=== PATIENT | female | born 1990 | race African-American/Black ===

== ENCOUNTER 2018-05-25 09:54 | Inpatient (IN) | payer OTHER ==
[2018-05-25] MEDS ORDERED: Ondansetron HCl/PF 4 MG/2 ML Vial IVP PRN ×5 (10:04→16:45)
[2018-05-25 10:13] VITALS: BMI 38.7
[2018-05-25] MEDS: Lactated Ringer's 1,000 ML IV SCH ×2 (10:29→11:45)
[2018-05-25] MEDS ORDERED: Bicitra 30 ML UDCUP PO SCH (10:30)
[2018-05-25] MEDS ORDERED: CEFAZOLIN/Water 2 GM/20 ML SYRINGE SLOW IVP SCH (10:30)
[2018-05-25] MEDS ORDERED: ePHEDrine/0.9% NaCl/PF SYRINGE 50 mg/10 ml ONE (10:32)
[2018-05-25] MEDS ORDERED: Ondansetron HCl/PF 4 MG/2 ML Vial ONE (10:32)
[2018-05-25] MEDS ORDERED: PHENYLEPHRINE-NS 100 MCG/ML 10 ML SYRINGE ONE (10:32)
[2018-05-25] MEDS ORDERED: Dexamethasone 20 MG/5 ML VIAL ONE (10:32)
[2018-05-25 10:42] LABS: Hemoglobin 10.4 g/dL (12.0-16.0); Mean Corpuscular HGB CONC 33.1 g/dL (32.0-36.0); Mean Corpuscular Hemoglobin 27.4 pg (27.0-31.0); Mean Corpuscular Volume 82.7 fL (78.0-98.0); Mean Platelet Volume 6.6 fL (7.4-10.4); Platelet Count 280 thou/uL (130-400); RBC Distribution Width 14.3 % (11.5-14.5); Red Blood Cell (RBC) Count 3.79 mill/uL (4.20-5.40); White Blood Cell (WBC) Count 8.3 thou/uL (4.8-10.8)
[2018-05-25 11:16] LABS: Syphilis Antibody Nonreactive (Nonreactive); Syphilis Antibody Index 0.03 S/CO (<1.00 Non-Reactive)
[2018-05-25 11:18] LABS: HBSAg Index 0.21 S/CO (0-0.99); Hep B Surf Ag Non-Reactive S/CO (NonReactive)
[2018-05-25] MEDS ORDERED: Meperidine HCl/PF 25 MG/ML VIAL SLOW IVP PRN (11:55)
[2018-05-25] MEDS ORDERED: Naloxone HCl 0.4 mg/ml Vial IV PRN ×4 (11:55→16:45)
[2018-05-25] MEDS ORDERED: Eucerin (Mineral Oil/Petrolatum,White) 30 gm Jar TOP PRN (11:55)
[2018-05-25] MEDS ORDERED: Promethazine HCl 25 MG/ML VIAL IM PRN ×2 (11:55→16:45)
[2018-05-25] MEDS ORDERED: diphenhydrAMINE 50 MG/ML VIAL IVP PRN (11:55)
[2018-05-25] MEDS ORDERED: Naloxone HCl 0.4 mg/ml Vial IVP PRN ×2 (11:55)
[2018-05-25] MEDS ORDERED: Ketorolac Tromethamine 30 MG/ML VIAL IVP PRN ×2 (11:55→16:45)
[2018-05-25] MEDS ORDERED: HYDROmorphone 2 MG/ML VIAL SLOW IVP PRN (11:55)
[2018-05-25] MEDS ORDERED: Promethazine HCl 25 MG SUPP PR PRN ×2 (11:55→16:45)
[2018-05-25] MEDS ORDERED: Ketorolac Tromethamine 30 MG/ML VIAL IVP SCH (12:00)
[2018-05-25] MEDS ORDERED: Communication Order-Pharmacy FS SCH (12:00)
[2018-05-25] MEDS ORDERED: diphenhydrAMINE 50 MG/ML VIAL ONE (13:36)
[2018-05-25] MEDS ORDERED: Ketorolac Tromethamine 30 MG/ML VIAL ONE (13:50)
[2018-05-25] MEDS ORDERED: Meperidine HCl/PF 25 MG/ML VIAL ONE (14:03)
[2018-05-25] MEDS ORDERED: Morphine 4 MG/ML VIAL ONE (14:16)
[2018-05-25] MEDS ORDERED: diphenhydrAMINE 25 MG CAP PO PRN (15:06)
[2018-05-25] MEDS ORDERED: Bisacodyl 10 MG SUPP PR PRN (15:06)
[2018-05-25] MEDS ORDERED: NS / Oxytocin 40 units/1000ml 1,000 ML IV SCH (15:06)
[2018-05-25] MEDS: Ibuprofen 800 MG TAB PO SCH ×2 (16:18→22:04)
[2018-05-25] MEDS ORDERED: Hydrocerin (Eucerin) Cream 120 gm Jar TOP PRN (16:45)
[2018-05-25] MEDS ORDERED: NO PO,IM,IV OR SC NARCOTICS FOR 12HR EXCEPT BY ANESTHESIA PO SCH (16:45)
[2018-05-25] MEDS: Docusate Calcium (SURFAK) 240 MG CAP PO SCH (21:00)
[2018-05-25] MEDS: Ferrous Sulfate 325 MG TAB PO SCH (21:00)
[2018-05-25] MEDS ORDERED: Meperidine HCl/PF 25 MG/ML VIAL IM PRN (23:59)
[2018-05-26] MEDS: Lactated Ringer's 1,000 ML IV SCH (00:24)
[2018-05-26] MEDS: diphenhydrAMINE 50 MG/ML VIAL IVP PRN ×2 (00:39→08:24)
[2018-05-26 05:49] LABS: Hemoglobin 9.6 g/dL (12.0-16.0); Mean Corpuscular HGB CONC 33.3 g/dL (32.0-36.0); Mean Corpuscular Volume 83.9 fL (78.0-98.0); Platelet Count 260 thou/uL (130-400); RBC Distribution Width 14.2 % (11.5-14.5); Red Blood Cell (RBC) Count 3.44 mill/uL (4.20-5.40); White Blood Cell (WBC) Count 13.2 thou/uL (4.8-10.8)
[2018-05-26] MEDS: Ibuprofen 800 MG TAB PO SCH ×4 (07:17→21:32)
[2018-05-26] MEDS: HYDROcodone/Acetaminophen 5/325 mg Tablet PO PRN ×3 (08:20→21:36)
[2018-05-26] MEDS: Ferrous Sulfate 325 MG TAB PO SCH ×2 (08:21→21:32)
[2018-05-26] MEDS: Docusate Calcium (SURFAK) 240 MG CAP PO SCH ×2 (08:22→21:32)
[2018-05-26] MEDS: Prenatal Vitamin 1 TAB PO SCH (08:22)
[2018-05-26] MEDS: Simethicone Chewable 80 MG TAB PO PRN ×2 (08:23→23:51)
[2018-05-27] MEDS: HYDROcodone/Acetaminophen 5/325 mg Tablet PO PRN ×4 (01:37→20:28)
[2018-05-27] MEDS: Ibuprofen 800 MG TAB PO SCH ×3 (06:10→21:31)
[2018-05-27] MEDS: Docusate Calcium (SURFAK) 240 MG CAP PO SCH ×2 (09:04→20:27)
[2018-05-27] MEDS: Prenatal Vitamin 1 TAB PO SCH (09:04)
[2018-05-27] MEDS: Ferrous Sulfate 325 MG TAB PO SCH ×2 (09:05→20:28)
[2018-05-27] MEDS ORDERED: Ondansetron ODT 4 MG TAB PO PRN (11:07)
[2018-05-28] MEDS: Ibuprofen 800 MG TAB PO SCH (06:41)
[2018-05-28] MEDS: Simethicone Chewable 80 MG TAB PO PRN (06:44)
[2018-05-28] MEDS: HYDROcodone/Acetaminophen 5/325 mg Tablet PO PRN ×2 (07:18→12:38)
[2018-05-28] MEDS: Prenatal Vitamin 1 TAB PO SCH (08:36)
[2018-05-28] MEDS: Docusate Calcium (SURFAK) 240 MG CAP PO SCH (08:36)
[2018-05-28] MEDS: Ferrous Sulfate 325 MG TAB PO SCH (08:36)
[2018-05-28 08:58] VITALS: BP 147/77; TEMP 98.2
== END 2018-05-28 13:00 | disposition home or self-care (01) | DRG 766 ==
LOC: L&D 09:54 → 3SW 14:51
PROVIDERS: ADMIT Family Medicine; ATTEND Family Medicine
PROC: 10D00Z1 Extraction of Products of Conception, Low, Open Approach (ICD-10-PCS; principal; 2018-05-25)
DX: O34.211 Maternal care for low transverse scar from previous cesarean delivery (principal); Z3A.39 39 weeks gestation of pregnancy; Z37.0 Single live birth
CPT/HCPCS: 36415; 51702; 85027; 86780; 86850; 86900; 86901; 87340; J1100; J1200; J1885; J2175; J2270; J2405; Q0162